=== PATIENT | male | born 1970 | race Caucasian/White ===

== ENCOUNTER 2017-07-05 12:22 | Emergency (ER) | payer OTHER ==
[~2017-07-05] VITALS: Ht 162.6 cm; Wt 61.2 kg
[2017-07-05] MEDS ORDERED: Norco 5mg/325mg tab ORAL ONE (13:15)
[2017-07-05] MEDS ORDERED: Tetanus/Diptheria/Pertussis Vaccine 0.5ml Syr IM ONE (13:30)
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
[2017-07-05] MEDS ORDERED: [UNRECOGNIZED DRUG - OTHER] TP (14:07)
[2017-07-05] MEDS ORDERED: NORCO 5-325 TA1 EACH ORAL (14:07)
[2017-07-05] MEDS ORDERED: SILVADENE20 GM TP (14:24)
[2017-07-05 14:28] VITALS: BP_SYST 136; BP_SYST 139; BP_DIAS 74; BP_DIAS 77
== END 2017-07-05 14:28 | disposition home or self-care (01) ==
LOC: EMR 13:10
DX: T24.212A Burn of second degree of left thigh, initial encounter (principal); T24.232A Burn of second degree of left lower leg, initial encounter; T31.0 Burns involving less than 10% of body surface; X11.8XXA Contact with other hot tap-water, initial encounter; Y92.511 Restaurant or cafe as the place of occurrence of the external cause; Y99.0 Civilian activity done for income or pay; Z23 Encounter for immunization
CPT/HCPCS: 90471; 90715; 96372